=== PATIENT | female | born 1995 | race Caucasian/White ===

== ENCOUNTER 2018-05-15 02:57 | Inpatient (IN) | payer OTHER ==
[~2018-05-15] VITALS: Ht 160 cm; Wt 105.6 kg
[2018-05-15 09:15] VITALS: Ht 160 cm; Wt 105.6 kg
[2018-05-15 09:16] VITALS: BP 121/77; PULSE 99
[2018-05-15] MEDS ORDERED: PNV11TAB PO (09:17)
[2018-05-15] MEDS ORDERED: BUTORPHANOL 1 MG INJ IV PRN (09:30)
[2018-05-15] MEDS ORDERED: MISOPROSTOL 200 MCG TAB PR PRN (09:30)
[2018-05-15] MEDS ORDERED: OXYTOCIN 30 UNITS/LR 500 ML IV PRN (09:30)
[2018-05-15] MEDS ORDERED: LIDOCAINE 1% (MPF) 30 ML INJ INJ PRN (09:30)
[2018-05-15] MEDS ORDERED: OXYTOCIN 30 UNITS/LR 500 ML IV SCH ×2 (09:30)
[2018-05-15] MEDS ORDERED: CARBOPROST 250 MCG INJ IM PRN (09:30)
[2018-05-15] MEDS ORDERED: METHYLERGONOVINE 0.2 MG INJ IM PRN (09:30)
[2018-05-15] MEDS: LACTATED RINGER'S 1,000 ML IV SCH ×2 (09:57→19:15)
--- NOTE | 2018-05-15 12:38 | HP ---
Date/Time of Note Date/Time of Note DATE: 05/15/18 TIME: 12:36 OB - History Hx of Present Free Text/Dictation 23 YO G1 with EDC 05/17/2018 with IUP at 39.5 weeks. IOL was requested by JEAN. Care: Good Care Ultrasounds: Normal mid trimester US Obstetrical Complications: None Medical Complications: None Past Family/Social History * Past Medical, Surgical, Family and Obstetric Histories reviewed from chart. OB Admission Exam Vital Signs Vital Signs Vital Signs Date Temp Pulse Resp B/P (MAP) Pulse Ox O2 O2 Flow FiO2 Time Delivery Rate 05/15/18 97.6 99 121/77 09:16 (92) Physical Exam HEENT: WNL Heart: Rhythm Normal Lungs: Clear, Equal Abdomen: WNL Extremities: Normal Reflexes: Normal Cervical Dilatation: 1cm Last 72 hours Lab Results CBC & BMP 05/15/18 09:45 OB Assessment/Plan Other Assessment: IUP 39.5 weeks Induction Method: per Misoprostol Protocol LORI GRIFFITH MD May 15, 2018 12:38
[2018-05-15] MEDS: MISOPROSTOL 50 MCG CAPSULE PO SCH ×4 (13:40→22:04)
[2018-05-15] MEDS: CLINDAMYCIN 900 MG/D5W (PMX) 50 ML IVPB SCH ×2 (13:57→22:04)
[2018-05-16] MEDS: LACTATED RINGER'S 1,000 ML IV SCH ×7 (02:25→23:54)
[2018-05-16] MEDS: MISOPROSTOL 50 MCG CAPSULE PO SCH ×3 (02:31→10:31)
[2018-05-16] MEDS: CLINDAMYCIN 900 MG/D5W (PMX) 50 ML IVPB SCH ×3 (06:30→22:26)
[2018-05-16] MEDS: BUTORPHANOL 2 MG INJ IV PRN (06:34)
--- NOTE | 2018-05-16 07:29 | QN ---
Documentation Comment slow progress with IOL. NST reassuring LORI GRIFFITH MD May 16, 2018 07:29
--- NOTE | 2018-05-16 11:06 | PREAC ---
Date/Time of Note Date/Time of Note DATE: 05/16/18 TIME: 11:05 Anesthesia Eval and Record Evaluation Time Pre-Procedure Interview DATE: 05/16/18 TIME: 11:05 Age 23 Sex female NPO: 8 hrs Preoperative diagnosis LABOR PAIN Planned procedure LABOR EPIDURAL Past Medical History Past Medical History: Includes : : (1), Para: (0), Gestational age: (37 6/7) Surgery & Anesthesia Issues No known issue (LAP APPY) Meds Anticoagulation: No Beta Chidi within 24 hr: No Reason Beta Chidi not given: Pt. not on B-Chidi Reported Medications [id number] ( 19) 1 Each Tablet, 1 TAB PO DAILY, TAB 05/15/18 Current Medications Lactated Ringer's 1,000 ml @ 125 mls/hr Q8H IV Last administered on 05/16/18at 10:22; Admin Dose 125 MLS/HR; Start 05/15/18 at 09:17 Butorphanol Tartrate (Stadol) 1 mg Q2H PRN IV .PAIN; Start 05/15/18 at 09:30 Butorphanol Tartrate (Stadol) 2 mg Q2H PRN IV .PAIN Last administered on 05/16/18at 06:34; Admin Dose 2 MG; Start 05/15/18 at 09:30 Lidocaine (Xylocaine 1% (Mpf)) 30 ml ONCE PRN INJ .EPISIOTOMY; Start 05/15/18 at 09:30 Oxytocin/Lactated Ringer's 500 ml @ 500 mls/hr ONCE POST IV ; Start 05/15/18 at 09:30 Oxytocin/Lactated Ringer's 500 ml @ 125 mls/hr POST IV ; Start 05/15/18 at 09:30 Oxytocin/Lactated Ringer's 500 ml @ 0 mls/hr ONCE PRN IV .VAGINAL BLEEDING; Start 05/15/18 at 09:30 Methylergonovine Maleate (Methergine) 0.2 mg ONCE PRN IM .VAGINAL BLEEDING; Start 05/15/18 at 09:30 Carboprost Tromethamine (Hemabate) 250 mcg ONCE PRN IM .VAGINAL BLEEDING; Start 05/15/18 at 09:30 Misoprostol (Cytotec) 1,000 mcg ONCE PRN GA .VAGINAL BLEEDING; Start 05/15/18 at 09:30 Clindamycin HCl/ Dextrose 50 ml @ 100 mls/hr Q8 IVPB Last administered on 05/16/18at 06:30; Admin Dose 100 MLS/HR; Start 05/15/18 at 14:00 Meds reviewed: Yes Allergies Uncoded Allergies: pcn (Allergy, Mild, 05/15/18) Allergies Reviewed: Yes Labs/Studies Labs Reviewed: Reviewed by anesthesiologist Result Diagram: 05/15/18 0945 05/15/18 1827 Laboratory Tests 05/15/18 18:27 test: N/A Pre-procedure Exam Last vitals Vital Signs Date Temp Pulse Resp B/P (MAP) Pulse Ox O2 O2 Flow FiO2 Time Delivery Rate 05/15/18 97.6 99 121/77 09:16 (92) Airway: Adequate mouth opening, Adequate thyromental dist Mallampati: Mallampati II Teeth: Normal Lung: Normal Heart: Normal ASA Physical Status ASA physical status: 2 Emergency: None Planned Anesthetic Neuraxial: Epidural Planned Pain Management Epidural Pre-operative Attestations Prior to commencing anesthesia and surgery, the patient was re-evaluated, there was verification of: *The patient's identity *The results of appropriate recent lab work and preoperative vital signs *The above evaluation not changing prior to induction *Anesthetic plan, risk benefits, alternative and complications discussed with patient/family; questions answered; patient/family understands, accepts and wishes to proceed. Trip Tello M.D. May 16, 2018 11:06
[2018-05-16] MEDS ORDERED: FENTAnyl 2MCG/ML-ROPIV 0.2% 100 ML ONE (11:07)
[2018-05-16] MEDS ORDERED: DIPHENHYDRAMINE 50 MG INJ IV PRN (11:30)
[2018-05-16] MEDS ORDERED: NALOXONE (0.4 MG/ML) INJ IV PRN (11:30)
[2018-05-16] MEDS ORDERED: TRIMETHOBENZAMIDE 100 MG/ML VIAL IM PRN (11:30)
[2018-05-16] MEDS ORDERED: ONDANSETRON 4 MG INJ IV PRN (11:30)
--- NOTE | 2018-05-16 11:31 | PAC ---
Date/Time of Note Date/Time of Note DATE: 05/16/18 TIME: 11:31 Post-Anesthesia Notes Post-Anesthesia Note Last documented vital signs Vital Signs Date Temp Pulse Resp B/P (MAP) Pulse Ox O2 O2 Flow FiO2 Time Delivery Rate 05/15/18 97.6 99 121/77 09:16 (92) Activity: WNL Respiratory function: WNL Cardiovascular function: WNL Mental status: Baseline Pain reasonably controlled: Yes Hydration appropriate: Yes Nausea/Vomiting absent: Yes Trip Tello M.D. May 16, 2018 11:31
[2018-05-16] MEDS ORDERED: OXYTOCIN 30 UNITS/LR 500 ML IV SCH (14:00)
[2018-05-16] MEDS: FENTAnyl 2MCG/ML-ROPIV 0.2% 100 ML BAG EPI SCH (18:47)
[2018-05-16] MEDS ORDERED: ACETAMINOPHEN 325 MG TAB PO PRN (22:00)
[2018-05-16] MEDS ORDERED: GENTAMICIN 120 MG/NS (PMX) 100 ML IVPB SCH (22:00)
[2018-05-17] MEDS: FENTAnyl 2MCG/ML-ROPIV 0.2% 100 ML BAG EPI SCH (01:37)
[2018-05-17] MEDS: BUTORPHANOL 2 MG INJ IV PRN (03:35)
--- NOTE | 2018-05-17 05:56 | LDN ---
Date/Time of Note Date/Time of Note DATE: 05/17/18 TIME: 05:52 Delivery Summary IOL with cytotec x5 f/b pitocin Amnioinfusion for frequent variable decelerations of normal male over MLE Weeks of Gestation 40w Placenta Delivered: Spontaneously, Intact & Complete Meconium: none Episiotomy: Yes Indication for episiotomy expected laceration Perineal laceration: 0 Laceration repair: 00 ch gut Anesthesia type: Epidural Estimated blood loss: 200 Sponge & Needle done & correct: Yes All needle counts correct: Yes Any foreign bodies felt in the: No Delivery Information Sex Infant Sex: male Apgars 1 Minute: 8 5 Minute: 9 Suctioning Nose & mouth suctioned at taylor: Yes Delee suction performed: Yes Umbilical Cord Umbilical cord with: 3 Vessels Cord presentations: no nuchal cord Cord Blood was obtained: Yes Mother & Baby Disposition Disposition Mom & Baby to Maternity; Good: Yes Mom transferred to: Other Baby to NICU: No () MARYJANE FUENTES MD May 17, 2018 05:56
[2018-05-17] MEDS ORDERED: WITCH HAZEL/GLYCERIN PAD PR PRN (07:30)
[2018-05-17] MEDS ORDERED: BENZOCAINE 20% 56 ML SPRAY TOP PRN (07:30)
[2018-05-17] MEDS ORDERED: OXYCODONE/ASPIRIN (4.88/325) TAB PO PRN ×2 (07:30)
[2018-05-17] MEDS ORDERED: ZOLPIDEM 5 MG TAB PO PRN (07:30)
[2018-05-17] MEDS ORDERED: CARBOPROST 250 MCG INJ IM PRN (07:30)
[2018-05-17] MEDS ORDERED: MISOPROSTOL 200 MCG TAB PR PRN (07:30)
[2018-05-17] MEDS ORDERED: LANOLIN HPA 1 PKT TOP PRN (07:30)
[2018-05-17] MEDS ORDERED: METHYLERGONOVINE 0.2 MG INJ IM PRN (07:30)
[2018-05-17] MEDS ORDERED: OXYTOCIN 30 UNITS/LR 500 ML IV PRN (07:30)
[2018-05-17 08:00] VITALS: BP 122/73; PULSE 101; RESP 16
[2018-05-17] MEDS: SENNA/DOCUSATE NA (8.6MG/50MG) TAB PO SCH ×2 (09:00→21:38)
[2018-05-17] MEDS: LACTATED RINGER'S 1,000 ML IV SCH (10:51)
[2018-05-17] MEDS: IBUPROFEN 600 MG TAB PO SCH ×2 (11:47→17:23)
[2018-05-17 11:49] VITALS: BP 138/83; PULSE 96; RESP 16
[2018-05-17 16:00] VITALS: BP 113/66; PULSE 95; RESP 18
[2018-05-17 20:30] VITALS: BP 116/76; PULSE 68; RESP 18
[2018-05-18] VITALS: BP 123/78; PULSE 81; RESP 18
[2018-05-18] MEDS: IBUPROFEN 600 MG TAB PO SCH ×5 (00:32→23:37)
[2018-05-18 04:00] VITALS: BP 122/76; PULSE 84; RESP 18
[2018-05-18 09:15] VITALS: BP 113/82; PULSE 84; RESP 20
[2018-05-18] MEDS: SENNA/DOCUSATE NA (8.6MG/50MG) TAB PO SCH ×2 (09:30→21:38)
--- NOTE | 2018-05-18 11:03 | PN ---
Date/Time of Note Date/Time of Note DATE: 05/18/18 TIME: 11:00 OB Subjective Subjective Subjective Ambulating. Decreased vaginal bleeding. Breast-feeding. Denies any fever or chills. Denies any dizziness or lightheadedness. Denies any shortness of breath or chest pain. Reports has inverted nipple has been using oracle consultant. Now knows how to breast-feed OB Objective Objective Objective General appearance: Alert and oriented x4 does not appear to be in any acute distress Abdomen: Soft, fundus palpable below the umbilicus and nontender Extremities: No calf redness, no click no edema Breast: Evidence of inverted nipple noted Extremities no calf tenderness, bilateral symmetric edema, no cord palpable negative Homans sign CBC & BMP 05/15/18 18:27 05/18/18 07:09 Liver Function Test 05/15/18 18:27 Alanine Aminotransferase (ALT/SGPT) 20 Albumin 3.4 Alkaline Phosphatase 251 H Aspartate Amino Transf (AST/SGOT) 16 Direct Bilirubin 0.00 Total Protein 6.9 OB Assessment/Plan Other Assessment: Status post induction of labor at 39+ weeks day #1 Doing well Leukocytosis, likely reactive , asymptomatic no evidence of endometritis or infection Inverted nipple. Status post oracle consultant Continue routine care Anticipate DC home tomorrow AMINAH GUERRERO MD May 18, 2018 11:03
[2018-05-18 16:00] VITALS: BP 113/71; PULSE 80; RESP 16
[2018-05-18 20:30] VITALS: BP_SYST 110; BP_SYST 112; BP_DIAS 62; PULSE 72; PULSE 88; RESP 18
[2018-05-19 04:00] VITALS: BP 121/71; PULSE 83; RESP 20
[2018-05-19] MEDS: IBUPROFEN 600 MG TAB PO SCH ×2 (05:53→11:31)
[2018-05-19] MEDS ORDERED: DIPHTH/TET/ACEL PERTUSS (ADULT) 0.5 ML VIAL IM* ONE (09:00)
[2018-05-19 09:30] VITALS: BP 109/75; PULSE 70; RESP 16
[2018-05-19] MEDS: SENNA/DOCUSATE NA (8.6MG/50MG) TAB PO SCH (09:51)
--- NOTE | 2018-05-19 10:45 | DS ---
Date/Time of Note Date/Time of Note DATE: 05/19/18 TIME: 10:45 Obstetrical Discharge Record Final Diagnosis Final Diagnosis: Term delivered Vaginal Delivery Obstetrical Delivery: Spontaneous Complications Augmentation: Yes Induction: Yes Rupture of Membranes: No Condition on Discharge Physical Assessment Voiding: Yes Bowel Movement: Yes Breast: Soft, non-tender, Filling Fundus: Firm Abdomen and Incision: soft, not tender Calf Tenderness: No Patient Condition: Good LORI GRIFFITH MD May 19, 2018 10:45
== END 2018-05-19 11:55 | disposition home or self-care (01) | DRG 807 ==
LOC: L-D 07:59 → PP1 05-17 16:05
PROVIDERS: ADMIT Specialist; ATTEND Specialist
PROC: 3E033VJ Introduction of Other Hormone into Peripheral Vein, Percutaneous Approach (ICD-10-PCS; 2018-05-15)
PROC: 10E0XZZ Delivery of Products of Conception, External Approach (ICD-10-PCS; principal; 2018-05-17)
PROC: 0W8NXZZ Division of Female Perineum, External Approach (ICD-10-PCS; 2018-05-17)
PROC: 3E0E7GC Introduction of Other Therapeutic Substance into Products of Conception, Via Natural or Artificial Opening (ICD-10-PCS; 2018-05-17)
DX: O76 Abnormality in fetal heart rate and rhythm complicating labor and delivery (principal); O92.02 Retracted nipple associated with the puerperium; Z37.0 Single live birth; Z3A.40 40 weeks gestation of pregnancy
CPT/HCPCS: 62319; 76815; 80053; 81001; 81003; 83605; 84560; 85025; 85610; 85730; 86592; 86850; 86900; 86901; 87040; 87340; 99464; J0595; J1580; J2590; J3010; J7120